=== PATIENT | female | born 1970 | race Two or more races ===

== ENCOUNTER 2024-03-08 15:13 | Outpatient (RCR) | payer MEDICAID, SELFPAY ==
--- NOTE | 2024-03-08 15:42 | PTNOTE_ITS ---
PT OP Initial Eval Patient Information Outpatient Physical Therapy Treatment Date: 03/08/24 Visit Reasons: Lumbago with sciatica right side/left side Medical Diagnosis: M54.42 M54.41 Treatment Dx #1: LBP with radiculopathy Start of Care: 03/08/24 Date of Onset: 12 yrs ago Smoking Status Smoking Status: Never smoker Initial Assessment Subjective: Pt is 53 yr old pakistani speaking female who reports long Hx of LBP that radiates down into the glutes and B LE's into the feet. Pain limits HH chores and she is unable to sweep, lift things and bending fwd. PMH: DM, high cholesterol Imaging: Xray negative from 2020 Pt goal: to get rid of the pain Objective: Trunk ArOM: ? B SB 50% of normal with pain ? Extension: 20% with pain around L4-5, L5-S1 ? Flexion: 10 from floor with LBP ? B rotation: 60% with pain ? R SLR ROM: 45 deg. L SLR: 50 deg with posterior knee neural tension, LBP ? TTP: moderate paraspinals L5-S1 ? Neuro: L SLR: positive Assessment: ? Pt presents with trunk flexion sensitivity and overlying myofascial pain ? and TTP around L5-S1 consistent with lower lumbar disc bulge(s) with radiculopathy. Pt requires skilled therapy in order to decrease ? pain and improve sitting/standing tolerance and has poor/fair rehab potential. Eval ?followed by HEP printout. Poor extension tolerance. PT recommends further diagnostic imaging of L/S if ssx don't resolve. 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 1. Ind with HEP ? 2. Improved sitting/standing tolerance to 20 minutes with <=4/10 LBP ? 3. Decreased lower paraspinal TTP from mod to min 4. Improved HH chore tolerance to at least 30 minutes with <=3/10 LBP and no ?increase in LE ssx ? Treatment Plan Pt will try 3-4 trial sessions, if improving continue, if not reassess. ? 1. Manual therapy ? 2. Therex ? 3. Modalities as indicated, moist heat, ice, estim, mechanical traction Frequency and Duration: 1-2x a week for 12 sessions Certification Dates: 03/08/24 to 06/04/24 Procedure Charges OP PT Eval Mod Complex 30 minutes: Yes
== END 2024-03-29 23:59 | disposition home or self-care (01) ==
LOC: CPTX 15:13
PROVIDERS: PCP Physician Assistant; Referring Provider Physician Assistant; Visit Provider Physician Assistant
DX: M54.16 Radiculopathy, lumbar region (principal); M54.42 Lumbago with sciatica, left side; M54.41 Lumbago with sciatica, right side
CPT/HCPCS: 97162

== ENCOUNTER 2024-03-21 17:02 | Emergency (ER) | payer MEDICAID, SELFPAY ==
[2024-03-21 17:50] VITALS: BP 126/78; PULSE 68; RESP 18; TEMP 36.6; O2SAT 100; BMI 29.2
--- NOTE | 2024-03-21 17:55 | XR_ITS ---
Examination: Hand, right 3 views Technique: Hand AP, oblique, lateral 3 views Date and time of exam: March 21, 2024 1759 hrs. Indications: Injury to the hand today with fourth digit pain. Findings: No acute fracture. No dislocation No foreign body Impression: No acute fracture
--- NOTE | 2024-03-21 17:55 | PD.EDRME ---
Rapid Medical Screening Exam RME Arrival date/time: 03/21/24 17:02 53-year-old female presents the emergency department complains of right hand injury today Chief Complaint: Hand/Wrist Problems Time Seen by Provider: 03/21/24 17:51 Vital signs: Vital Signs Temperature 98 F 03/21/24 17:50 Pulse Rate 68 03/21/24 17:50 Respiratory Rate 18 03/21/24 17:50 Blood Pressure 126/78 03/21/24 17:50 Pulse Oximetry (%) 100 03/21/24 17:50 Oxygen Delivery Method Room Air 03/21/24 17:50
--- NOTE | 2024-03-21 18:24 | PD.EDHAND ---
Upper Extremity Injury RME/HPI General Chief Complaint: Hand/Wrist Problems Stated Complaint: INJURY TO RITH 4TH FINGER TODAY Time Seen by Provider: 03/21/24 17:51 Source: patient Arrival date/time: 03/21/24 17:02 53-year-old female with past medical history diabetes past emergency department complaining of right fourth digit injury while cutting a tree branch. Mode of arrival: ambulatory Limitations: no limitations RME / HPI RME / HPI narrative: 03/21/24 17:02 53-year-old female presents the emergency department complains of right hand injury today Related Data Previous Rx's ?Medication ?Instructions ?Recorded ibuprofen 200 mg tablet 600 mg (3 x 200 mg) PO Q6HR pain 03/26/13 ##30 etodolac 400 mg tablet 400 mg PO BID PRN pain #30 tabs 09/23/20 [id number] 250 2 tab PO DAILY PRN headache #14 10/16/22 mg-250 mg-65 mg tablet (Excedrin tabs Migraine) ibuprofen 600 mg tablet 600 mg PO Q8H PRN pain #20 tabs 03/21/24 Allergies Allergy/AdvReac Type Severity Reaction Status Date / Time No Known Allergies Allergy Verified 03/21/24 17:07 Review of Systems Review of Systems Systems Reviewed: All systems reviewed, normal except as documented Constitutional Constitutional: Reports system reviewed and no additional complaints, except as documented, Denies body ache(s), Denies chills and Denies fever(s) Eyes Eyes: Reports system reviewed and no additional complaints, except as documented and Denies change in vision ENT Ears, Nose, Mouth, and Throat: Reports system reviewed and no additional complaints, except as documented, Denies disequilibrium, Denies dizziness, Denies sore throat and Denies vertigo Cardiovascular Cardiovascular: Reports system reviewed and no additional complaints, except as documented, Denies chest pain and Denies dyspnea Respiratory Respiratory: Reports system reviewed and no additional complaints, except as documented, Denies chest congestion, Denies cough and Denies dyspnea Gastrointestinal Gastrointestinal: Reports system reviewed and no additional complaints, except as documented, Denies abdominal pain, Denies nausea and Denies vomiting Musculoskeletal Musculoskeletal: Reports system reviewed and no additional complaints, except as documented, Denies abnormal gait and Reports arthralgias Integumentary/Breasts Skin/Breast: Reports system reviewed and no additional complaints, except as documented, Denies erythema, Denies rash and Denies wounds Neurologic Neurologic: Reports system reviewed and no additional complaints, except as documented, Denies abnormal gait, Denies disequilibrium, Denies dizziness and Denies vertigo Past Medical History Social History SMOKING STATUS: Never smoker ED Exam General Limitations: Present no limitations General appearance: Present alert and in no apparent distress Head Head exam: Present atraumatic Eye Eye exam: Present normal appearance, PERRL and EOMI ENT ENT exam: Present normal exam, normal oropharynx and mucous membranes moist Neck Neck exam: Present normal inspection, full ROM and trachea midline Chest Chest inspection: Present normal inspection and symmetric chest wall rise Respiratory Respiratory exam: Present normal lung sounds bilaterally Cardiovascular Cardiovascular exam: Present regular rate, normal rhythm and normal heart sounds Abdominal Exam Abdominal exam: Present soft and normal bowel sounds Extremities Exam Extremities exam: Present normal inspection and full ROM Expanded Upper Extremity Exam Hand exam: Present tenderness and swelling Hand L/R back image: 1. +1 edema Back Exam Back exam: Present normal inspection and full ROM Neurological Exam Neurological exam: Present alert, oriented X3 and CN II-XII intact Psychiatric Psychiatric exam: Present normal affect and normal mood Skin Skin exam: Present warm, dry, intact and normal color Course Quality Measures none Orders Category Date Time Status XR hand comp RT min 3V Stat Exams 03/21/24 17:55 Completed Vital Signs Vital signs: Vital Signs Temperature 98 F 03/21/24 17:50 Pulse Rate 68 03/21/24 17:50 Respiratory Rate 18 03/21/24 17:50 Blood Pressure 126/78 03/21/24 17:50 Pulse Oximetry (%) 100 03/21/24 17:50 Oxygen Delivery Method Room Air 03/21/24 17:50 100% room air within normal limits Extremity Injury MDM Narrative MDM Narrative:: 53-year-old female with past medical history diabetes past emergency department complaining of right fourth digit injury while cutting a tree branch. X-ray unremarkable for any fracture or dislocation. Patient affected finger is neurovascularly intact with limited active range of motion due to pain. Patient instructed to follow-up with primary care provider and return to emergency department for any worsening symptoms or as needed. Patient data External records reviewed:: [facility] [place] previous records Clinical information provided by:: patient Social determinants that could affect healthcare access:: none Patient has the following chronic illnesses:: See chart How is presenting disease/condition affected by chronic disease/condition?: uneffected by Evaluation data The following diagnostics were reviewed and interpreted by me:: radiology exam(s) Lab and/or radiology exams considered but not ordered:: Ordered Interpretation Summary: Interpreted by me Medications / Prescriptions Medications or Prescriptions considered but not ordered:: N/A Medication administrations:: N/A Consultations Consultation(s) initiated? (list below): No Diagnosis Upper Extremity Injury Differential Diagnosis: dislocation of finger, Colles' fracture and fracture of hand Most likely diagnosis given after review of the tests above:: Finger sprain Admission Indicated Admission indicated?: not indicated Admission Request Was there a request for admission?: No Disposition Plan Disposition Plan: Discharge Discharge Attestation Discharge Attestation: The patient and all family members were given an opportunity to ask questions and understood the discharge instructions. Discharge instructions specifically effects, indications for sooner follow up or return to the emergency department, and the expected course of current diagnosis. Patient condition: Stable Discharge Plan Plan Patient Disposition: HOME (Self Care) Disposition Comment: Stable Prescriptions/Referrals Prescriptions/Med Rec: New ibuprofen 600 mg tablet 600 mg PO Q8H PRN (Reason: pain) Qty: 20 0RF No Action ibuprofen 200 MG tablet 600 mg PO Q6HR Qty: 30 0RF etodolac 400 mg tablet 400 mg PO BID PRN (Reason: pain) Qty: 30 0RF Excedrin Migraine 250-250-65 mg tablet 2 tab PO DAILY PRN (Reason: headache) Qty: 14 0RF Problem List Clinical Impression: Finger sprain Patient/Caregiver Discharge Instructions Discharge Activity: activity as tolerated Education Materials: ED Finger Sprain Additional Instructions: Take ibuprofen as needed for pain. Follow-up with primary care provider in 2 to 3 days. Return to emergency department for any worsening symptoms or as needed. Print Language: Jamaican Stand Alone Forms: [employer] Award Info., Patient Portal Info Letter PA/SENIOR PIPING DESIGNER Supervising Physician PA/SENIOR PIPING DESIGNER Supervising Physician: Dr. Oliveros
== END 2024-03-21 18:46 | disposition home or self-care (01) ==
PROVIDERS: Emergency Provider Emergency Medicine
DX: S63.614A Unspecified sprain of right ring finger, initial encounter (principal); E11.9 Type 2 diabetes mellitus without complications; X58.XXXA Exposure to other specified factors, initial encounter
CPT/HCPCS: 73130; 99283

== ENCOUNTER → 2024-05-14 | Outpatient (CLI) | payer MEDICAID, SELFPAY ==
--- NOTE | 2024-05-14 08:00 | XR_ITS ---
Examination: MRI lumbar spine without contrast Date and time of exam: May 14, 2024 0841 hrs. Indications: Lower back pain radiating down both legs numbness in both legs 3 years worse the last 5 months Technique: Multiple MRI axial and sagittal sections lumbar spine. Sagittal T2-weighted images, TR 3500, TE 118 T1 weighted transverse sections, TR 688 T8.5, T2-weighted sagittal sections T1 weighted sagittal sections TR 621, TE 30 T2 axial sections, TR 4, 190, TE 84. Findings: Adequate alignment lumbar vertebral bodies Normal marrow signal lumbar vertebral bodies No lumbar fracture Moderate disc narrowing L5-S1 Disc desiccation L5-S1 L5-S1 6 mm central lumbar disc bulge contiguous with the right and left S1 nerve roots and producing mild bilateral L5 ganglionic compression More cephalad levels unremarkable Impression: L5-S1 6 mm central lumbar disc bulge contiguous with the right and left S1 nerve roots and producing mild bilateral L5 ganglionic compression
== END | disposition home or self-care (01) ==
LOC: SMRI 07:28
PROVIDERS: Referring Provider Family Medicine; Visit Provider Family Medicine
DX: M51.379 Other intervertebral disc degeneration, lumbosacral region without mention of lumbar back pain or lower extremity pain (principal); G95.20 Unspecified cord compression
CPT/HCPCS: 72148